=== PATIENT | female | born 1950 | race Caucasian/White ===

== ENCOUNTER 2018-08-29 07:35 | Outpatient (CLI) | payer MEDICARE, BC, OTHER ==
[~2018-08-29] VITALS: Ht 152.4 cm; Wt 52.3 kg
[2018-08-29 08:11] LABS: HEMATOCRIT 33.3 % (36.0-48.0); HEMOGLOBIN 10.5 g/dL (12-16); IMMATURE GRANULOCYTES 13.1 % (0-5); LYMPHOCYTES 33.9 % (15-50); MCH 27.8 pg (26.0-34.0); MCHC 31.5 g/dL (31.0-37.0); MCV 88.1 fL (80.0-100.0); PLATELET COUNT 154 10x3/uL (130-400); RBC 3.78 10x6/uL (4.00-5.40); RDW 18.9 % (11.5-14.5)
[2018-08-29 08:14] LABS: APTT 31.1 SECONDS (22.8-39.4); INR 1.03 (0.85-1.17)
[2018-08-29 08:22] LABS: CALC OSMOLALITY 286 mosm/kg (275-300); CALCIUM 9.5 mg/dL (8.5-10.1); CHLORIDE - SERUM 107 mmol/L (98-107); CREATININE - SERUM 0.8 mg/dL (0.6-1.3); GLUCOSE 104 mg/dL (74-106); POTASSIUM - SERUM 3.9 mmol/L (3.5-5.1); SODIUM 143 mmol/L (136-145); UREA NITROGEN 18 mg/dL (7-18); eGFR NON AFRICAN AMERICAN 75 mL/min (90-120)
[2018-08-29] MEDS ORDERED: LIPITOR10 MG (09:13)
[2018-08-29] MEDS ORDERED: NEXIUM20 MG PO (09:14)
[2018-08-29] MEDS ORDERED: LEVOXYL50 MCG PO (09:15)
[2018-08-29] MEDS ORDERED: LISINOPRIL10 MG PO (09:16)
[2018-08-29] MEDS ORDERED: PRINIVIL10 MG PO (09:16)
[2018-08-29] MEDS ORDERED: VALTREX500 MG PO (09:18)
[2018-08-29] MEDS ORDERED: CALCIUM 600 +1 EAC3 PO (09:19)
[2018-08-29] MEDS ORDERED: PROBIOTIC BLEN1 EACH (09:19)
[2018-08-29 09:35] VITALS: Ht 152.4 cm; Wt 52.3 kg
== END 2018-08-29 13:10 | disposition home or self-care (01) ==
LOC: D.SP 07:35 → D.CT 10:00 → D.SP 10:00
PROVIDERS: Radiology Diagnostic Radiology
DX: D64.9 Anemia, unspecified (principal); Z01.812 Encounter for preprocedural laboratory examination

== ENCOUNTER 2020-03-30 07:19 | Outpatient (CLI) | payer MEDICARE, BC, OTHER ==
[~2020-03-30] VITALS: Ht 152.4 cm; Wt 54.5 kg
[~2020-03-30 07:19] MED LIST: CALCIUM 600 +1 EAC3 PO; LEVOXYL50 MCG PO; LIPITOR10 MG; LISINOPRIL10 MG PO; NEXIUM20 MG PO; PRINIVIL10 MG PO; PROBIOTIC BLEN1 EACH; VALTREX500 MG PO
[2020-03-30 07:58] LABS: APTT 32.2 SECONDS (22.8-39.4); INR 1.03 (0.85-1.17); PROTIME 13.5 SECONDS (11.6-15.0)
[2020-03-30 08:00] LABS: ANION GAP 13.4 mmol/L (8-16); CALCIUM 9.8 mg/dL (8.5-10.1); CARBON DIOXIDE 26.2 mmol/L (21.0-32.0); POTASSIUM - SERUM 4.6 mmol/L (3.5-5.1)
[2020-03-30 08:01] LABS: HEMATOCRIT 34.2 % (36.0-48.0); HEMOGLOBIN 10.4 g/dL (12-16); MCH 27.1 pg (26.0-34.0); MCHC 30.4 g/dL (31.0-37.0); MCV 89.1 fL (80.0-100.0); MEAN PLATELET VOLUME 10.8 fL (7.4-10.4); PLATELET COUNT 172 10x3/uL (130-400); RBC 3.84 10x6/uL (4.00-5.40); RDW 19.5 % (11.5-14.5); WBC 5.1 10x3/uL (4.8-10.8)
[2020-03-30] MEDS ORDERED: FAMOTIDINE10 MG PO (09:06)
[2020-03-30 09:08] VITALS: Ht 152.4 cm; Wt 54.5 kg
[2020-03-30 10:03] LABS: ANISOCYTOSIS OCC; LYMPHOCYTES 41 % (15-50); MONOCYTES 14 % (2-11); NEUTROPHILS 26 % (40-80); PLATELET ESTIMATE NORMAL; POLYCHROMASIA OCC
--- NOTE | 2020-03-30 12:23 | NUR ---
1220 SEE POST PROCEDURE CHECKLIST FOR VITAL SIGN TRENDS.
== END 2020-03-30 13:20 | disposition home or self-care (01) ==
LOC: D.SP 07:19 → D.CT 10:00 → D.SP 10:00
PROVIDERS: Radiology Diagnostic Radiology; ATTEND Internal Medicine Hematology & Oncology
DX: D64.9 Anemia, unspecified (principal); L21.9 Seborrheic dermatitis, unspecified; E78.5 Hyperlipidemia, unspecified; I10 Essential (primary) hypertension; R53.83 Other fatigue